=== PATIENT | male | born 1950 ===

== ENCOUNTER 2017-09-16 09:53 | Outpatient (CLI) | payer OTHER | END 2017-09-16 10:02 | disposition home or self-care (01) | LOC: LAB 09:53 | DX: I10 Essential (primary) hypertension (principal); E78.5 Hyperlipidemia, unspecified ==

== ENCOUNTER 2017-09-16 10:05 | Outpatient (CLI) | payer OTHER | END 2017-09-16 10:09 | disposition home or self-care (01) | LOC: RAD 10:05 | DX: I10 Essential (primary) hypertension (principal) ==

== ENCOUNTER → 2017-09-16 | Outpatient (CLI) | payer OTHER ==
[~2017-09-16] MED LIST: ATENOLOL 50 MG PO; ATENOLOL50 MG; ATENOLOL50 MG PO; INDAPAMIDE2.5 MG; LOPRESSOR 50 MG PO; METFORMIN HCL500 M1; METFORMIN HCL500 M1 PO; METFORMIN HCL500 M3 PO; METFORMIN HCL500 MG PO; TENORMIN50 MG PO
== END | disposition home or self-care (01) ==
LOC: PPHC 08:32
DX: Z00.8 Encounter for other general examination (principal)